=== PATIENT | male | born 1995 ===

== ENCOUNTER 2018-04-13 11:13 | Emergency (ER) | payer SELFPAY ==
[2018-04-13 11:15] VITALS: BP 142/74; PULSE 105; RESP 16; TEMP 37.7; O2SAT 97; BMI 27.6
--- NOTE | 2018-04-13 13:33 | NURSING ---
patients name called and no one to answer at this time. [facility]BS at [id number]
== END 2018-04-13 14:03 | disposition left against medical advice (07) ==
LOC: ED 13:59
PROVIDERS: Emergency Provider Emergency Medicine; Family Provider Family Medicine; PCP Family Medicine
DX: S81.811A Laceration without foreign body, right lower leg, initial encounter (principal)